=== PATIENT | female | born 2000 | race American Indian/Alaskan Native ===

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

== ENCOUNTER 2021-05-21 17:12 | Emergency (ER) | payer BC, MEDICAID ==
[2021-05-21 19:10] VITALS: BP 113/71
--- NOTE | 2021-05-21 19:53 | Emergency Department Report ---
Blank Doc - Documentation Documentation: Patient has been called multiple times for MSE triage for evaluation but patient did not answer. Patient ELOPED without telling anybody patient is leaving. I did not see or examine the patient during today's visit.
== END 2021-05-21 20:17 | disposition left against medical advice (07) ==
LOC: ED 17:12
DX: R05 Cough (principal); Z53.21 Procedure and treatment not carried out due to patient leaving prior to being seen by health care provider